=== PATIENT | female | born 1965 | race Caucasian/White ===

== ENCOUNTER 2023-10-07 08:03 | Outpatient (CLI) | payer OTHER, SELFPAY ==
--- NOTE | ~2023-10-07 | MMUS_ITS ---
EXAMINATION: MM diagnostic adriane BI w kit, US breast BI complete HISTORY: Bilateral breast pain TECHNIQUE: Additional 3-D tomosynthesis images of the breasts were performed and synthetic 2-D images were generated. CAD analysis was submitted and interpreted. High resolution bilateral complete breas t ultrasound was performed. COMPARISON: Comparison to multiple prior studies sequentially, with oldest reviewed study dated 08/24. BREAST PARENCHYMAL COMPOSITION: Not dense: There are scattered areas of fibroglandular density. FINDINGS: MAMMOGRAPHIC FINDINGS: There are multiple bilateral breast masses which are obscured by fibroglandular tissue. There are no suspicious calcifications or architectural distortion. ULTRASOUND: Complete bilateral US of all 4 quadrants of the breasts and retroareolar region was reviewed. Right breast: At 12:00, 4 cm from the nipple there is an oval 1 cm hypoechoic mass with parallel orie ntation, no posterior features with echogenic hilum, likely a intramammary lymph node. At 12:00, 4 cm from the nipple, there is an oval 3 mm hypoechoic mass, likely complicated cyst. At 9:00, 4 cm from the nipple there is an oval hypoechoic mass with parallel orientation, no posterior features and no i nternal vascularity, likely benign. At 10:00, 7 cm from the nipple there is an oval hypoechoic 11 mm mass with posterior acoustic enhancement, likely a complicated cyst. At 10:00, 7 cm from the nipple, there is an oval 4 mm cyst. At 10:00, 6 cm from the nipple there is an oval hypoechoic mass measuring 5 mm with parallel orientation, no significant posterior features, likely benign. At 11:00, 5 cm fro m the nipple there is a slightly irregular shaped hypoechoic mass measuring 6 mm with internal echoge ruddy foci and no internal vascularity. There is mixed posterior attenuation. Margins are slightly lobu lated. At 12:00, 4 cm from the nipple there is an irregular shaped parallel oriented hypoechoic mass measuring 1.4 x 0.5 x 1.4 cm with irregular margins and no internal vascularity. No significant poste rior features. Left breast: At 12:00, 5 cm from the nipple there is a round 4 mm hypoechoic mass, likely benign no i nternal vascularity or significant posterior features. At 12:00, 4 cm from the nipple there are 2 adj acent cysts, largest measuring 11 mm. At 1:00, 4 cm from the nipple there is a 6 mm cyst. At 1:00, 2 cm from the nipple there is a 11 mm cyst. At 2:00, 6 cm from the nipple there is an oval hypoechoic m ass measuring 5 mm with parallel orientation, no posterior features. At 11:00, 4 cm from the nipple t here is an antiparallel slightly irregular shaped 5 mm mass without internal vascularity. At 11:00, 4 cm from the nipple there is an oval 4 mm hypoechoic mass, likely benign. IMPRESSION: 1. Suspicious masses in both breasts as follows: Right breast at 11:00, 5 cm from the nipple 6 mm mas s, at 12:00, 4 cm from the nipple 1.4 cm irregular shaped hypoechoic mass. Left breast: At 11:00, 4 c m from the nipple there is 5 mm mass with antiparallel configuration. Ultrasound-guided biopsy of eac h of these masses recommended. 2. Multiple additional likely benign bilateral breast masses are identified by ultrasound which requi re 6 month follow-up. BI-RADS CATEGORY 4-SUSPICIOUS ABNORMALITY Reviewed, dictated and finalized at location B. IMPRESSION: 1. Suspicious masses in both breasts as follows: Right breast at 11:00, 5 cm fr om the nipple 6 mm mass, at 12:00, 4 cm from the nipple 1.4 cm irregular shaped hypoechoic mass. Left breast: At 11:00, 4 cm from the nipple there is 5 mm mas s with antiparallel configuration. Ultrasound-guided biopsy of each of these ma sses recommended. 2. Multiple additional likely benign bilateral breast masses are identified by ultrasound which requ
== END 2023-10-07 08:04 ==
LOC: MICIMG 08:05
PROVIDERS: Visit Provider Nurse Practitioner Obstetrics & Gynecology
DX: N64.4 Mastodynia (principal); R92.8 Other abnormal and inconclusive findings on diagnostic imaging of breast
CPT/HCPCS: 76641; 77062; 77066; G0279

== ENCOUNTER 2023-11-11 12:03 | Outpatient (CLI) | payer OTHER, SELFPAY ==
--- NOTE | ~2023-11-11 | MR_ITS ---
MR breast BI wo/w con 11/12/2023 08:16 CDT INDICATION: Bilateral breast masses seen on prior examination. Mastodynia. TECHNIQUE: MRI of the breasts perform using standard protocol pre-and post IV contrast with the follo wing sequences: Axial T2 STIR, axial T1, axial vibrant T1 with fat suppression precontrast and multip hasic postcontrast. 17 cc of MultiHance administered intravenously. COMPARISON: Comparison to multiple prior studies sequentially, with oldest reviewed study dated 11/13. FINDINGS: There are multiple bilateral cysts. There are no abnormalities on the precontrast sequences . There is moderate background parenchymal enhancement. In the upper outer quadrant at 10:00, middle third there is a oval slightly lobulated mass measuring approximately 11 mm with slightly irregular m argins and heterogeneous internal rapid plateau enhancement. This likely corresponds to the mass seen on ultrasound at 12:00, 4 cm from the nipple measuring 1.4 cm. Biopsy recommended. No definite corre late to the mass seen on prior ultrasound 11:00, 5 cm from the nipple. Biopsy of this also recommende d. In the upper inner quadrant of the right breast at 2:00 there is a 4 mm enhancing round mass with rapid washout kinetics at 2:00, middle third 6.4 cm posterior to the nipple. No definite sonographic correlate to this MRI mass. In the upper outer quadrant of the right breast at 12:00, middle third 8. 3 cm posterior to the nipple there is an oval area of nonmass-like enhancement measuring 11 x 8 x 13 mm with rapid plateau enhancement. No definite sonographic correlate. No evidence of signal abnormali ties in the axillary or internal mammary node distributions. LEFT BREAST: No signal abnormalities on precontrast sequences. There is moderate background parenchy mal enhancement. In the upper outer quadrant at 12:00, middle third 7.3 cm posterior to the nipple th ere is a 6 mm enhancing mass with rapid plateau enhancement which has an oval circumscribed appearanc e and homogeneous enhancement this may correspond to the mass seen on prior ultrasound at 11:00, 4 cm from the nipple. Recommend ultrasound guided biopsy of this lesion. No evidence of signal abnormalit ies in the axillary or internal mammary node distributions.] IMPRESSION: 1: Right breast: Recommend follow-up ultrasound guided biopsy of right breast masses at 11:00, 5 cm from the nipple and 12:00, 4 cm from the nipple. 2: Left breast: Recommend ultrasound-guided biopsy of left breast mass seen on prior ultrasound 11:0 0, 4 cm from the nipple. BI-RADS CATEGORY 4-SUSPICIOUS ABNORMALITY Reviewed, dictated and finalized at location B. IMPRESSION: 1: Right breast: Recommend follow-up ultrasound guided biopsy of right breast masses at 11:00, 5 cm from the nipple and 12:00, 4 cm from the nipple. 2: Left breast: Recommend ultrasound-guided biopsy of left breast mass seen on prior ultrasound 11:00, 4 cm from the nipple. BI-RADS CATEGORY 4-SUSPICIOUS ABNORMALITY
== END 2023-11-11 12:04 | disposition home or self-care (01) ==
PROVIDERS: Visit Provider Surgery
DX: N63.11 Unspecified lump in the right breast, upper outer quadrant (principal); N63.21 Unspecified lump in the left breast, upper outer quadrant
CPT/HCPCS: 77049; A9577; C8908

== ENCOUNTER 2023-12-21 07:36 | Outpatient (CLI) | payer OTHER, SELFPAY ==
--- NOTE | ~2023-12-21 | MMUS_ITS ---
MM post biopsy diagnostic BI, US breast biopsy LT w image, US breast biopsy RT w image EXAMINATION: US GUIDED NEEDLE BIOPSY WITH VACUUM ASSISTANCE DATE: 12/21/2023 11:13 CDT INDICATION: Bilateral breast masses seen on recent examination. Ultrasound-guided core biopsy is req uested to evaluate for malignancy. BREAST PARENCHYMAL COMPOSITION: Not dense: There are scattered areas of fibroglandular density. TECHNIQUE AND FINDINGS: The risks and potential benefits of the procedure were discussed with the patient, and written inform ed consent was obtained. Right breast: Masses of the right breast located at 11:00, 5 cm from the nipple and 12:00, 4 cm from the nipple were localized. 2 separate vacuum biopsy procedures were performed. A 10G vacuum-assisted biopsy gun needle was advanced through to the outer edge of the regions of interest utilizing sonogra phic guidance. A total of three tissue core samples were obtained through each lesion. An Inrad tis leonel marker clip was then placed at the biopsy site. Hemostasis was achieved. Left breast: Mass at 11:00, 4 cm from the nipple was localized. A 10G vacuum-assisted biopsy gun need le was advanced through to the outer edge of the region of interest from a superior approach utilizin g sonographic guidance. A total of three tissue core samples were obtained through the lesion. An I nrad tissue marker clip was then placed at the biopsy site. Hemostasis was achieved. The patient tolerated procedure well and there was no evidence of immediate complication. The patien t was given verbal instructions partly is from the department. [facility] The tissue samples were submitted to surgical pathology for histolog ic analysis. IMPRESSION: 1. Successful ultrasound-guided vacuum-assisted biopsy of bilateral breast masses with post procedur e mammogram for marker placement. Please refer to pathology report for histologic analysis. Reviewed, dictated and finalized at location B. IMPRESSION: 1. Successful ultrasound-guided vacuum-assisted biopsy of bilateral breast mas ses with post procedure mammogram for marker placement. Please refer to patholo gy report for histologic analysis. IMPRESSION: 1. Successful ultrasound-guided vacuum-assisted biopsy of bilateral breast mas ses with post procedure mammogram for marker placement. Please refer to patholo gy report for histologic analysis.
== END 2023-12-21 07:37 | disposition home or self-care (01) ==
PROVIDERS: Visit Provider Surgery
DX: N63.11 Unspecified lump in the right breast, upper outer quadrant (principal); N63.15 Unspecified lump in the right breast, overlapping quadrants; N63.22 Unspecified lump in the left breast, upper inner quadrant; R92.8 Other abnormal and inconclusive findings on diagnostic imaging of breast; N60.11 Diffuse cystic mastopathy of right breast; N60.12 Diffuse cystic mastopathy of left breast
CPT/HCPCS: 19083; 77066; 88305; A4648

== ENCOUNTER 2024-07-14 10:50 | Outpatient (CLI) | payer OTHER, SELFPAY ==
--- NOTE | ~2024-07-14 | MMUS_ITS ---
EXAMINATION: MM diagnostic adriane BI w kit, US breast RT limited HISTORY: Previous benign biopsy TECHNIQUE: Additional 3-D tomosynthesis images of the right breast were performed and synthetic 2-D i mages were generated. CAD analysis was submitted and interpreted. High resolution Limited right breas t ultrasound was performed. COMPARISON: Comparison to multiple prior studies sequentially, with oldest reviewed study dated 08/24. BREAST PARENCHYMAL COMPOSITION: Dense: The breasts are heterogeneously dense, which may obscure small masses FINDINGS: MAMMOGRAPHIC FINDINGS: There are multiple obscured masses in the upper outer quadrant of the right breast superimposed on fi broglandular tissue. There are tissue markers located in the upper outer quadrant of the right breast from previous benign biopsies. The left breast is stable without evidence for malignancy. ULTRASOUND: Limited right breast ultrasound: There are multiple simple and minimally complicated cysts of the rig ht breast in the upper outer quadrant. There is a 9 mm cyst at 10:00, 4 cm from the nipple. At 11:00, 5 cm from the nipple there is a stable oval hypoechoic 5 mm mass with low level internal echoes, no posterior features or internal vascularity, unchanged from prior examination line for technique. No n ew suspicious masses to suggest malignancy. IMPRESSION: 1. No evidence for malignancy in either breast. Benign findings. 2. Routine yearly screening mammogram and regular clinical breast examination are recommended. BI-RADS Category 2: Benign finding(s). Reviewed, dictated and finalized at location A. IMPRESSION: 1. No evidence for malignancy in either breast. Benign findings. 2. Routine yearly screening mammogram and regular clinical breast examination a re recommended. BI-RADS Category 2: Benign finding(s).
--- OUTSIDE RECORDS SUMMARY | 2024-07-14 11:46 | XMS_ITS | Referral Summary ---
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 Gender Identity Not on file Sexual Orientation Not on file Last Filed Vital Signs Vital Sign Reading Time Taken Comments Blood Pressure - - Pulse - - Temperature - - Respiratory Rate - - Oxygen Saturation - - Inhaled Oxygen Concentration - - Weight 97.5 kg (215 lb) 08/24/2019 8:32 AM CDT Height 170.2 cm (5' 7 ) 08/27/2021 8:29 AM CDT Body Mass Index 33.67 08/24/2019 8:32 AM CDT Plan of Treatment Not on file Procedures Procedure Name Priority Date/Time Associated Diagnosis Comments SCREENING MAMMOGRAM BILATERAL W ORAL Schedule Routine, Read Routine (OP Routine) 11/13/2022 8:25 AM CDT Screening mammogram, encounter for from Last 3 Months or Most Recently Relevant to Health Maintenance Results * Screening Mammogram Bilateral W Oral (11/13/2022 8:25 AM CDT) Anatomical Region Laterality Modality Breast Bilateral Mammography 11/13/2022 8:51 AM CDT Impressions 11/13/2022 8:51 AM CDT There is no mammographic evidence of malignancy. A 1 year screening mammogram is recommended. BI-RADS: 2 - Benign. The patient has been or will be contacted. The patient will be entered into a reminder system with a target due date of 1 year for her next mammogram. Electronically signed by: LIBBY Wilde 11/13/2022 8:51 AM CDT EXAMINATION: SCREENING MAMMOGRAM BILATERAL W ORAL ORDERING HEALTHCARE PROVIDER: SELF SCREENING MAMMOGRAM HISTORY: Routine screening mammography. COMPARISON: 08/27/2021, 08/24/2020, 08/24/2019, 06/22/2018. TECHNIQUE: CC and MLO views of both breasts were obtained with digital technique using digital breast tomosynthesis with C view. Computer aided detection was utilized. FINDINGS: DENSITY: The breasts are heterogeneously dense, which may obscure small masses. BREASTS: Multiple similar-appearing small masses with circumscribed margins are again seen. These are considered benign given their appearance and multiplicity, and lack of suspicious interval change. These probably represent cysts. There is no new suspicious finding in either breast on mammogram. us Self Screening Mammogram IMG MAMMO PROCEDURES Fi nal Result from Last 3 Months or Most Recently Relevant to Health Maintenance Insurance [employer] CHOICE ANTHTrellie ACCESS BLUE ACC CHOICE OOS Member Subscriber Plan / Payer (Ef fective 2020-Present) Name:Betty Sagastume Relation to Subscriber:Self Name:Betty Sagastume Payer ID:[id number] (NA) Group ID:[id number] Type: [facility] Address: [address] [place] [address] BL CHOICE PRF PPO [place] [facility] CHOICE OOS Member Subscriber Plan / Payer (Ef fective 2020-Present) Name:Betty Sagastume Relation to Subscriber:Self Name:Betty Sagastume Payer ID:[id number] ([facility]) Group ID:[id number] Type: [facility] Address: [address] [place] [address] BL [place]F [place] [facility] PPO Care Teams Systems Management Consultant Relationship Specialty Start Date End Date Miscellaneous, Not In File PCP - General 08/28/21
--- OUTSIDE RECORDS SUMMARY | 2024-07-14 11:47 | XMS_ITS | Clinical Summary ---
Author Organization [facility] Address [address] [place] [address] Phone Care Team Providers Care Chain Forming Machine Operator Name Role Phone HamlinJesse cadet Primary Care Provider Allergies Active Allergy Reactions Criticality Noted Date Comments Aspirin Other (See Comments) 12/28/2016 Can't remember Medications SUMAtriptan (IMITREX) 100 mg tablet Take 100 mg by mouth see administration instructions may repeat in 2 hours; max dose 200mg in 24 hours . Active predniSONE (DELTASONE) 5 mg tablet Take 5 mg by mouth daily. Active docusate sodium (COLACE) 100 mg capsule Take 1 Capsule (100 mg) by mouth 2 times daily. 90 Capsule 1 7 Active cyclobenzaprin e (FLEXERIL) 10 mg tablet Take 1 Tablet (10 mg) by mouth 3 times daily as needed for Discomfort, Pain or Spasm. 45 Tablet 7 Active oxyCODONE-acet aminophen (PERCOCET) 5-325 mg tabletIndicati ons:Open left ankle fracture, type III, initial encounter,Ankl e dislocation, left, initial encounter Take 1 Tablet by mouth every 4 hours as needed for Pain, Moderate. Max Daily Amount: 6 Tablets 50 Tablet 7 Active Active Problems Problem Noted Date Diagnosed Date Type III open fracture dislocation of left ankle 12/27/2016 Immunizations Immunization Administration Dates Next Due (ADACEL/BOOSTRIX)(10 YR UP) TDAP VACCINE, 0.5ML, IM 12/04/2016 Influenza Seasonal Unspecified Formulation IM Social History Tobacco Use Types Packs/Day Years Used Date Smoking Tobacco: Former Smokeless Tobacco: Never Alcohol Use Standard Drinks/Week Comments No 0 (1 standard drink = 0.6 oz pur e alcohol) Comments Unknown Sex and Gender Information Value Date Recorded Sex Assigned at Not on file Legal Sex Female 6:54 PM CDT Gender Identity Not on file Sexual Orientation Not on file Last Filed Vital Signs Vital Sign Reading Time Taken Comments Blood Pressure 125/70 12/30/2016 1:26 PM CDT Pulse 113 12/30/2016 1:26 PM CDT Temperature 36.5 C (97.7 F) 12/30/2016 1:26 PM CDT Respiratory Rate 16 12/30/2016 1:26 PM CDT Oxygen Saturation 100% 12/30/2016 1:26 PM CDT Inhaled Oxygen Concentration - - Weight 93 kg (205 lb) 12/28/2016 2:23 AM CDT Height 170.2 cm (5' 7 ) 12/28/2016 2:23 AM CDT Body Mass Index 32.11 12/28/2016 2:23 AM CDT Plan of Treatment Health Maintenance Due Date Last Done Comments HEPATITIS B VACCINES (1 of 3 - 19+ 3-dose series) 05/1985 HPV/Cotest (21-29) 01/17/1988 CERVICAL CANCER SCREENING 1997 HPV/Cotest (30-65) 1997 PAP SMEAR 1997 BREAST CANCER SCREENING 2007 COLORECTAL SCREENING 01/17/2012 Colorectal Cancer Screening 01/17/2012 FIT-DNA Q 3 years 01/17/2012 FIT/FOBT Q 1 year 01/17/2012 Flex Sig/CT Colonography Q 5 years 01/17/2012 ZOSTER VACCINE (1 of 2) 2017 INFLUENZA VACCINE (#1) 2023 12/04/2016 DTAP/TDAP/TD VACCINES (2 - Td or Tdap) 12/04/2026 Medical Devices Implanted Type Area Sock Ironer Device Identifier Shelf Expiration Date Model / Serial / Lot Plate Fib Lat/Dis 2.7/3.5mm - [id number] Implanted:Qty: 1 on 12/28/2016 by Domitila Marley MD at [facility] Plate Left: Ankle SYNTHES STRATEC 143 ; 12/27/[address] Loc 2.7x16mm 202.216 - [id number] Implanted:Qty: 1 on 12/28/2016 by Domitila Marley MD at [facility] Screw Left: Ankle SYNTHES STRATEC 202.216 / / 15; 12/27/[address] Loc 2.7x18mm 202.218 - [id number] Implanted:Qty: 1 on 12/28/2016 by Domitila Marley MD at [facility] Screw Left: Ankle SYNTHES STRATEC 202.218 / / 15; 12/27/[address] 3.5x12mm 204.812 - [id number] Implanted:Qty: 2 on 12/28/2016 by Domitila Marley MD at [facility] Screw Left: Ankle SYNTHES STRATEC 204.812 ; 12/26/16 Explanted Type Area Sock Ironer Device Identifier Shelf Expiration Date Model / Serial / Lot Screw St 2.7x16mm 202.816 - [id number] Implanted:Domitila Montanez MD (Quantity not on file) Explanted:Qty: 1 on 12/28/2016 by Domitila Marley MD at [facility] Screw Left: Ankle SYNTHES STRATEC 202.816 ; 12/26/16 Insurance [facility] [address] BLUE ACCESS/TRUE BLUE PPO Advance Directives For more information, please contact: [phone] * Full Code (Latest Code Status on File) Date Activated Date Inactivated Comments 12/28/2016 8:04 AM 12/30/2016 6:53 PM * Full Code Date Activated Date Inactivated Comments 12/27/2016 10:09 PM 12/28/2016 8:04 AM Care Teams Chain Forming Machine Operator Relationship Specialty Start Date End Date Jesse Hamlin DO PCP - General Family Practice 12/27/16
--- OUTSIDE RECORDS SUMMARY | 2024-07-14 11:47 | XMS_ITS | Clinical Summary ---
Author Organization [facility] Address [address] [place] [address] Phone Care Team Providers Care Scagliola Mechanic Name Role Phone Jesse Schilling DAYANA Primary Care Provider [phone] Allergies Active Allergy Reactions Criticality Noted Date Comments Aspirin Hives 11/12/2017 Medications montelukast (SINGULAIR) 10 MG Tablet Take 10 mg by mouth daily. 8 Active ERLINDA-D ALLERGY & CONGESTION 60-120 MG TABLET SR 12 HR Take 1 Tab by mouth daily as needed. 8 Active hydrocortisone (CORTEF) 5 MG Tablet Take 5 mg by mouth daily as needed. 8 Active SUMAtriptan (IMITREX) 100 MG Tablet Take 100 mg by mouth. 1 tablet as needed for migraine may repeat in 2-3 hours if needed x1. 8 Active traMADol (ULTRAM) 50 MG Tablet Take 50 mg by mouth every 6 hours as needed. 8 Active Multiple Vitamins-Mineral s (MULTIVITAMIN PO) Take 1 Tab by mouth daily. Active other Take 1 Tab by mouth daily. Vitamin C Pack Active Multiple Vitamins-Mineral s (EYE VITAMINS PO) Take 1 Tab by mouth daily. Active BIOTIN PO Take 1 Tab by mouth daily. Active CALCIUM PO Take 1 Tab by mouth daily. Active furosemide (LASIX) 20 MG Tablet Take 20 mg by mouth as needed. Active NYSTATIN EX by Apply externally route. Active Cephalexin 500 MG Tablet Take 500 mg by mouth daily. Active raNITIdine (ZANTAC) 300 MG Tablet Take 300 mg by mouth nightly. Active nebivolol (BYSTOLIC) 5 MG Tablet Take 10 mg by mouth nightly. Active clotrimazole (MYCELEX) 10 MG Katharine Take 10 mg by mouth 5 times daily. Active zolpidem (AMBIEN) 10 MG Tablet Take 5 mg by mouth nightly as needed. Active MAGNESIUM PO Take 50 mg by mouth daily. OTC Active otherIndications :USES ESTROGEN PATCH AND TESTOSTERONE PO, BUT UNSURE OF DOSE REPORTED ON 06/02/22 [address]. Indications: USES ESTROGEN PATCH AND TESTOSTERONE PO, BUT UNSURE OF DOSE REPORTED ON 06/02/22 Active Active Problems Problem Noted Date Diagnosed Date Migraine 05/16/2010 Asthma Family History Medical History Relation Name Comments Asthma Father Heart Disease Father Colon Cancer Mother Heart Disease Mother heart arrhythm ia Breast Cancer Paternal Grandmother Relation Name Status Comments Father Mother Alive Paternal Grandmother Social History Tobacco Use Types Packs/Day Years Used Date Smoking Tobacco: Former Cigarettes 0.3 1 0 09/11/1983 - 09/10/1984 Smokeless Tobacco: Never Alcohol Use Standard Drinks/Week Comments No 0 (1 standard drink = 0.6 oz pur e alcohol) Comments No Sex and Gender Information Value Date Recorded Sex Assigned at Not on file Legal Sex Female 10:31 PM CDT Gender Identity Not on file Sexual Orientation Not on file Last Filed Vital Signs Vital Sign Reading Time Taken Comments Blood Pressure 108/60 03/18/2024 5:54 PM MONITOR TECH Pulse 88 03/18/2024 5:54 PM MONITOR TECH Temperature 36.6 C (97.8 F) 03/18/2024 5:54 PM MONITOR TECH Respiratory Rate 20 03/18/2024 5:54 PM MONITOR TECH Oxygen Saturation 98% 03/18/2024 5:54 PM MONITOR TECH Inhaled Oxygen Concentration - - Weight 88.5 kg (195 lb) 06/02/2022 9:00 AM CDT Height 170.2 cm (5' 7 ) 06/02/2022 9:00 AM CDT Body Mass Index 30.54 06/02/2022 9:00 AM CDT Plan of Treatment Health Maintenance Due Date Last Done Comments Hepatitis C Virus (HCV) Screening 1967 Hepatitis B Immunization (1 of 3 - 19+ 3-dose series) 1986 Pneumococcal Immunization (50+ years) (1 of 2 - PCV) 1986 Pap Smear 01/17/1988 Cervical Cancer Screening (CCS) 1997 HPV/Cotest 1997 Cologuard 2017 Immunochemical Fecal Occult Blood 2017 Mammogram 11/14/2023 11/13/2022, 08/14, 08/24/2020, Additional history exists Influenza Immunization (#1) 11/15/202301/15, 11/16/2021, 01/02/2020, Additional history exists SARS-COV-2 Immunization ( season) 2023 05/24/2020 Colonoscopy 06/14/2027 06/13/2022, 09/10/2018 Colorectal Cancer Screening 06/14/2027 Respiratory Syncytial Virus (RSV) Immunization (Adult) (1 - 1-dose 75+ series) 2042 06/13/2022, 09/10/2018 DTaP/Tdap/Td Immunization Discontinued 12/04/2016 TdaP Immunization Completed 12/04/2016 Zoster Immunization Completed 02/23/2022, 2 Meningococcal Immunization (ACWY) Aged Out No longer eligible based on patient's age to complete this topic Rotavirus Immunization Aged Out No lo nger eligible based on patient's age to complete this topic Insurance Care Teams Scagliola Mechanic Relationship Specialty Start Date End Date Jesse Schilling, DAYANA [address] [place] [address] PCP - General Physician Vat Washer 11/12/17
--- OUTSIDE RECORDS SUMMARY | 2024-07-14 11:47 | XMS_ITS | Clinical Summary ---
Author Organization [facility] Address [address] [place] [address] Care Team Providers Care Occ Therapist Name Role Phone Miscellaneous, Not In File Primary Care Provider Unavailable Family History Medical History Relation Name Comments Breast cancer Paternal Grandmother mp 70's Ovarian cancer Neg Hx Thyroid cancer Neg Hx Relation Name Status Comments Paternal Grandmother mp Social History Tobacco Use Types Packs/Day Years Used Date Smoking Tobacco: Never Assessed Comments No Sex and Gender Information Value Date Recorded Sex Assigned at Not on file Legal Sex Female 9:56 AM [employer] Gender Identity Not on file Sexual Orientation Not on file Obstetrics History Para Term AB IAB SAB Ectopic Multiple Livin g Live Births 3 2 2 Date Outcome GA Total Labor Labor/2nd/3rd Weight Sex Type Anes PTL Ashley A1 A5 Name Clin Term Term Last Filed Vital Signs Vital Sign Reading Time Taken Comments Blood Pressure - - Pulse - - Temperature - - Respiratory Rate - - Oxygen Saturation - - Inhaled Oxygen Concentration - - Weight 97.5 kg (215 lb) 08/24/2019 8:32 AM CDT Height 170.2 cm (5' 7 ) 08/27/2021 8:29 AM CDT Body Mass Index 33.67 08/24/2019 8:32 AM CDT Plan of Treatment Health Maintenance Due Date Last Done Comments Cervical Cancer Screening 1967 Colon Cancer Screening-Colonoscopy 1967 Depression Screening 1967 Hepatitis C Screening 1967 Hepatitis B Screening 1985 Regular Well Visit/Exam 18-64 1985 Zoster Vaccine (1 of 2) 2017 Breast Cancer Screening-Mammogram 11/14/2023 11/13/2022, 08/27/2021, 08/24/2020, Additional history exists Covid-19 Vaccine ( season) 2023 05/24/2020 Influenza Vaccine (#1) 2023 0, 11/26/2018, 04/27/2018, Additional history exists DTaP/Tdap/Td Vaccine (2 - Td or Tdap) 12/04/2026 12/04/2016 Pneumococcal vaccine <65 Aged Out No longer eligible based on patient's age to complete this topic Procedures Procedure Name Priority Date/Time Associated Diagnosis [...] Most Recently Relevant to Health Maintenance Insurance ANTHEM ACCESS CHOICE ANTHEM ACCESS Member Subscriber Plan / Payer (Ef fective 2018-Present) Name:Betty Sagastume Relation to Subscriber:Self Name:Betty Sagastume Payer ID:[id number] (NAIC) Group ID:[id number] Type:[place] Address: [address] ACC CHOICE OOS BL CHOICE [place]F [place] [facility] HMO [facility] OOS [facility] [place]PO [place] [facility] PPO Care Teams Occ Therapist Relationship Specialty Start Date End Date Miscellaneous, Not In File PCP - General 08/28/21
--- OUTSIDE RECORDS SUMMARY | 2024-07-14 11:47 | XMS_ITS | Data Portability ---
Author Organization [facility] Address [address] [place] [address] [place] [address] Assessment Encounter Date Assessment Date Assessment LastModified by Organization Details LastModified Time 07/26/2019 07/26/2019 Annual gynecological exam performed. Patient will come back in a year unless there are new symptoms. [email or web address] Not available 07/26/2019 09:16:49 Plan of Treatment Reminders Order Date Submit Date Provider Last Modified By Organization Details Last Modified Time Details Appointments None recorded . Lab fecal occult blood, stool 020 07/26/19 [facility], [address], [place], [address], 0 17:47:32 Referral None recorded . Procedures None recorded . Surgeries None recorded . Imaging None recorded . Medication Orders None recorded . Patient TargetsNo targets recorded. Patient InstructionsNo instructions recorded. Reason for Referral None Reported. Results Created Date Observation Date Name Description Value Unit Range Abnormal Flag Note LastModifiedBy Organization Detail LastModifiedTime 07/26/19 20 07/28/2019 pap, LB Pap test thin prep Negati ve for Intrae pithel ial Lesion or Malign sharath normal ACCES CARMELITA #: [id number] Sourc e: Cervi isabel/E ndoce rvica l LMP: 020 Date Taken : 07/25 Speci men Type: ThinP rep Vial Date Repor kaur: 2019 Clini isabel Data: Cytot ech: Terri Dickerson CT( CP) Date Repor kaur: 2019 Revie wed By: Frances Allen , CT (ASCP ) Speci men Adequ acy: Satis facto ry for evalu ation No endoc ervic al/tr ansfo rmati on zone compo nent prese nt Gener al Categ oriza tion: NEGAT WILLI FOR INTRA EPITH ELIAL MIKAEL N OR MALNAHEED REINA This speci men has been fiorella zed by the ThinP rep Imagi ng Syste m, an inter activ e compu ter syste m which gabriel ts the lab in the [place] of ThinP rep Pap Test slide s. Follo wing imagi ng, the slide was revie wed by a Cytot echno logis t and/o r Patho logis t. D N A A S S A Y S R E P O R T TEST NAME RESUL TS ----- ---- ----- -- HPV High Risk Inessa barber (TMA) ThinP rep Vial The human papil lomav irus (HPV) High Risk Inessa barebr is an FDA-a pprov ed in-vi tro ampli fied nucle ic acid test for the quali tativ e detec tion of E6/E7 viral mRNA. Resul ts shoul d be corre lated with patie nt prese ntati on, histo ry, cervi isabel cytol ogy and other clini isabel and labor atory findi ngs. See https ://ViVu/s ites/ defau lt/fi les/2 018-0 3/AW- 45420 _002_ 01.pd f for furth er infor pernell n. Test perfo rmed by [facility] d/b/a [facility], [address], [place] [address] , Pedro Montesinos ra, DO, Labor atory Direc tor. HPV High Risk *HPV NOT DETEC KAUR (TYPE S 16, 18, 31, 33, 35, 39, 45, 51, 52, 56, 58, 59, 66, 68) *HPV: The human papil lomav irus (HPV) High Risk Inessa barber is an FDA-a pprov ed in-vi tro ampli fied nucle ic acid test for the quali tativ e detec tion of E6/E7 viral mRNA. Resul ts shoul d be corre lated with patie nt prese ntati on, histo ry, cervi isabel cytol ogy and other clini isabel and labor atory findi ngs. See https ://ViVu/s ites/ defsharron lt/fi les/2 018-0 3/AW- 38819 _002_ 01.pd f for furth er infor pernell n. Test perfo rmed by [facility] d/[facility], [address], [place] [address] , Pedro Montesinos ra, DO, Labor atory Direc tor. End of Repor t Techn ical servi artei provi ded by [facility], [address] [place] [address] Nhan Baugh MD, [facility] [employer] [employer] Dire tor. Case revie wed and diagn osis rende red at [facility], [facility], [address] [place] [address] Nhan Baugh MD, [facility] CONFI DENTI AL Not Available [facility] ([facility]) [address], [place], [address], 07/28/2019 13:01:19 07/26/19 20 07/27/2019 HPV DNA, high- risk HPV high risk NOT DETECT ED normal Not Available [facility] ([facility]) [address], [place], [address], 07/28/2019 13:01:20 08/24/19 20 08/24/2019 MAMMO , [place], bilat eral No observ ation record ed. [address] , [place], [address], 09/29/2019 12:43:46 Result Notes None recorded. 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 Procedures Surgical History Date Name Laterality Status Provider Name and Address Organization Details Recorded Time Other completed Concetta Matt [facility] 07/26/2019 05:59:27 Imaging Results Imaging Date Name Status LastModified by Organiz ation Details LastModified Time 08/24/2019 MAMMO, screening, bilateral completed [address], [address], 09/29/2019 12:43:46 Procedure Notes None recorded. Medical Equipment None Reported. Allergies Allergen ID Allergen Name Allergen Category Reaction Reaction Severity Criticality Documentation Date Start Date Code Code System Note Provider Name and Address Organization Details Recorded Time 537 aspirin medicatio n Not available Not available Not available 07/26/2019 1191 RxNorm Concetta Jin renny betancourt [facility] 0 05:56:28 Medications Name Sig Start Date Stop Date Status Note LastModified by Organization Details LastModified Time hydrocort isone 0.5 % topical cream apply by topical route 2 times every day a thin layer to the affected area(s) active Prescrib ed Elsewher e: Yes [facility] By: dmrose E ncounter DateTime : 07/23/19 10:00:00 AM Not Available Not Available Not Available fluconazo le 150 mg tablet Take by oral route. 07/25 completed Not Available Not Available Not Available monteluka st 4 mg chewable tablet active Prescrib ed Elsewher e: Yes Loca tion: Ervin cadet [facility] odify By: yen arroyounter DateTime : 07/23/19 10:00:00 AM Not Available Not Available Not Available Imitrex 50 mg tablet take 1 tablet by oral route after onset of migraine ; may repeat after 2 hours if headache returns, not to exceed 200mg in 24hrs active Prescrib ed Elsewher e: Yes Loca tion: Ervin cadet [facility] odify By: yen arroyounter DateTime : 07/23/19 10:00:00 AM Not Available Not Available Not Available ranitidin e 150 mg capsule take 1 capsule by oral route 2 times every day active Prescrib ed Elsewher e: Yes Loca tion: Ervin cadet [facility] odify By: yen arroyounter DateTime : 07/23/19 10:00:00 AM Not Available Not Available Not Available esomepraz ole magnesium 20 mg capsule,d elayed release take 1 capsule by oral route every day at least 1 hour before a meal swallowi ng whole. Do not crush or chew granules . active Prescrib ed Elsewher e: Yes Loca tion: Ervin cadet [facility] odify By: yen arroyounter DateTime : 07/23/19 10:00:00 AM Not Available Not Available Not Available Imitrex active Not Available Not Avail able Not Available hydrocort isone 07/25 completed Not Available Not Available Not Available monteluka st 07/25 completed Not Available Not Available Not Available Negin 07/25 completed Not Available Not Available Not Available esomepraz ole magnesium 07/25 completed Not Available Not Available Not Available Ranitidin e 07/25 completed Not Available Not Available Not Available Vitamins and Minerals active Not Available Not Available Not Available Bystolic 10 mg tablet take 1 tablet by oral route every day active Prescrib ed Elsewher e: Yes Loca tion: Ervin cadet [facility] odify By: dmrose E ncounter DateTime : 07/23/19 10:00:00 AM Not Available Not Available Not Available Bystolic active Not Available Not Avai lable Not Available Negin Allergy 60 mg tablet take 1 tablet by oral route 2 times every day active Prescrib ed Elsewher e: Yes Loca tion: [facility] odify By: [facility] Cadet ncounter DateTime : 07/23/19 10:00:00 AM Not Available Not Available Not Available Dymista 137 mcg-50 mcg/spray nasal spray spray 1 spray by intranas al route 2 times every day in each nostril active Prescrib ed Elsewher e: Yes Loca tion: [facility] odify By: yen Nina ncounter DateTime : 07/23/19 10:00:00 AM Not Available Not Available Not Available Dymista 07/25 completed Not Available Not Available Not Available Vitals Date Recorded Body height Body mass index (BMI) Body weight Systolic blood pressure Diastolic blood pressure Provider Name and Address Organization Details Last Updated DateTime 07/26/2019 170.18 cm 34.6 kg/m2 492904.9 1 g 129 mm[Hg] 85 mm[Hg] [facility] 0 09:17:11 Social History None recorded. Functional Status None recorded. Mental Status None recorded. Family History Relationship Description Onset Age of this Age Resolved Age Notes LastModified by Organization Details LastModified Time Mother Family history of cancer of colon cleravatanaku l Not available 07/26/2019 05:58:13 Father Asthma cleravatanaku l Not available 07/26/2019 05:58:21 Paternal Grandmother Family history of breast cancer cleravatanaku l Not available 07/26/2019 05:58:34 Notes:Father: Asthma Mother: Cancer, colon Paternal grandmother: Cancer, breast Medical History Condition Response Other N Blood Transfusion N Dermatologic Disorders N Gestational Diabetes N Anxiety Disorder N Autoimmune disease N Arthritis N Polyps N Infertility N Acid Reflux (GERD) N Cancer N Varicosities N Stroke N Neurologic/Epilepsy N Fibromyalgia N Headaches N Kidney Disease N Heart Problems N Kidney or Bladder Problems N Eating Disorder N Art (IVF or FET) N Hepatitis/Liver Disease N Urinary Tract Infection N Asthma Y Trauma/Violence N Thrombophilias N Allergies (Food, seasonal, environmental ) N Breast Cancer N Drug/Latex Allergies/Reactions N Lung Disease N Defects or Inherited Disease N Breast Problem N Hematologic disorders N Anesthesia Complications N History of STI N Deep Vein Thrombosis N Polycystic ovary syndrome N History of abnormal pap N Endometriosis N High Cholesterol N Thyroid Problems N GI Problems N Anemia N Psychiatric Illness N Ovarian Cancer N Diabetes N Pulmonary (TB, Asthma) N Eczema N Abuse/Domestic Violence N Depression/ depression N Heart Disease N Pre-Eclampsia N Hypertension N Osteoporosis N Gynecological History Statement/Question Response Current Control Method None Date of LMP 06/15/2019 Obstetrics History GPAL:G 0 P 0 0 0 0 Past Encounters Encounter ID Performer Location Encounter Start Date Encounter Closed Date Diagnosis/Indication Diagnosis SNOMED-CT Code Diagnosis ICD10 Code Diagnosis Note [id number] Patricia Starr MD [place] [address] [address] 07/26/2019 09:03:24 07/26/2019 10:06:49 Gynecologic examination 40835792 Z01.419 Pap done due to h/o abnormal pap. Mammogram scheduled at [facility] 08/2019. Colonoscop y normal last year. Menopause symptoms improving without any treatment. She tried black cohosh but stopped it Health Concerns Section Related Observation LastModified by Organization Detai ls LastModified Time None Recorded Concern Status LastModified by Organization Details LastModified Time None Recorded Advance Directives Directive None Recorded Payers Encounter Date Sequence Insurance Name Policy Number Policy Spencer Covered Member ID Spencer Member ID Guarantor Name 07/26/2019 1 [place] [id number] [place] Sagastume [id number] Notes Date Note Type Note Provider Name and Address Organization Details Recorded Time 07/26/2019 text/html Annual GYNReport ed bypatient.Menstrua l cycle:Irregular cycle intervals; periods Q 1-3 months, never heavy. Hot flashes and night sweats improving Urinary symptoms:No hematuria; No incontinence Vulva:No genital lesion Vagina:Normal vaginal discharge Breast:No breast pain; No breast lump; No nipple discharge Sexual complaints:No sexual complaints; No pain during intercourse; Normal libido Menopausal Symptoms:Normal vaginal lubrication;Hot flashes;Insomnia due to night sweats Psychological symptoms:No depression; No anxiety; No PMDD Bobby betancourt [facility] 07/26/2019 09:39:03 OBGyn Episode No OBEpisode recorded.
--- OUTSIDE RECORDS SUMMARY | 2024-07-14 11:47 | XMS_ITS | Clinical Summary ---
Author Organization [facility] Address [address] [place] [address] Care Team Providers Care Veteran Appeals Reviewer Name Role Phone Jesse Schilling Primary Care Provider [phone] Allergies Active Allergy Reactions Criticality Noted Date Comments Aspirin Hives 10/29/2017 Medications ALPRAZolam 0.5 MG tablet Take 0.5 mg by mouth 2 (two) times daily as needed for Sleep. Active docusate sodium (DOK) 100 MG capsule Take 100 mg by mouth 2 (two) times daily. Active esomeprazole 40 MG capsule Take 40 mg by mouth every morning before breakfast. Active fexofenadine-ps eudoephedrine 60-120 MG tablet Take 1 tablet by mouth 2 (two) times daily. Active fluticasone propionate 50 MCG/ACT nasal spray 2 sprays by Each Nare route daily. Active nebivolol 20 MG tablet Take 20 mg by mouth daily. Active montelukast 10 MG tablet Take 10 mg by mouth nightly at bedtime. Active rosuvastatin 10 MG tablet Take 10 mg by mouth nightly at bedtime. Active progesterone 100 MG capsule Take 100 mg by mouth daily. Active estradiol 0.05 MG/24HR patch Place 1 patch onto the skin twice a week. Active Semaglutide (RYBELSUS) 7 MG Tab Take 1 tablet by mouth. Active budesonide (PULMICORT) 0.5 MG/2ML nebulizer solution Take 0.5 mg by nebulization every morning. Active metFORMIN (GLUCOPHAGE) 500 MG tablet Take 500 mg by mouth 2 (two) times daily with meals. Active potassium chloride CR (KLOR-CON M) 10 MEQ tablet Take 10 mEq by mouth 2 (two) times daily. Active lisdexamfetamin e (VYVANSE) 20 MG capsule Take 20 mg by mouth every morning. Active zolpidem (AMBIEN) 5 MG tablet Take 5 mg by mouth nightly as needed for Sleep. 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 Respiratory Rate 16 01/14/2022 4:05 PM CDT Oxygen Saturation - - Inhaled Oxygen Concentration - - Weight 88.9 kg (196 lb) 01/14/2022 4:05 PM CDT Height 170.2 cm (5' 7 ) 01/14/2022 4:05 PM CDT Body Mass Index 30.7 01/14/2022 4:05 PM CDT Plan of Treatment Health Maintenance Due Date Last Done Comments Cervical Cancer Screening Pa p Smear (Age 30 to 64) Every 3 Years 1967 Colorectal Cancer Screening Colonoscopy (10 Years) 1967 Annual Physical 1970 Hepatitis C 1985 Hepatitis B Vaccines (1 of 3 - 19+ 3-dose series) 1986 Cervical Cancer Screening Pa p with HPV Testing (Age 30 to 64) Every 5 Years 1997 Cervical Cancer Screening with HPV 1997 Mammogram Screening 2007 Pneumococcal Vaccine: 50+ Ye ars (1 of 1 - PCV) 2017 Zoster Vaccines (2 of 2) 01/12/2022 11/17/2021 COVID-19 Vaccine (2 - 2023-2 5 season) 2023 05/24/2020 DTaP, Tdap and Td Vaccines ( 2 - Td or Tdap) 12/04/2026 12/04/2016 Meningococcal B Vaccine Aged Out No l onger eligible based on patient's age to complete this topic Meningococcal Vaccine Aged Out No miriam radha eligible based on patient's age to complete this topic RSV Immunizations Under 20 Months Aged Out No longer eligible based on patient's age to complete this topic Insurance [employer] Care Teams Veteran Appeals Reviewer Relationship Specialty Start Date End Date Jesse Schilling PA PCP - General 08/25/17
== END 2024-07-14 10:51 | disposition home or self-care (01) ==
PROVIDERS: Visit Provider Surgery
DX: N63.22 Unspecified lump in the left breast, upper inner quadrant (principal); N63.15 Unspecified lump in the right breast, overlapping quadrants; N63.11 Unspecified lump in the right breast, upper outer quadrant; R92.8 Other abnormal and inconclusive findings on diagnostic imaging of breast
CPT/HCPCS: 76642; 77062; 77066; G0279

== ENCOUNTER 2025-02-02 13:46 | Outpatient (CLI) | payer OTHER, SELFPAY ==
--- NOTE | ~2025-02-02 | US_ITS ---
EXAMINATION: US breast BI limited HISTORY: 60-year-old female who had benign pathology at ultrasound-guided core needle biopsy of bilateral breast masses completed on 12/21/2023 presents for follow-up evaluation. COMPARISON: 07/14/2024 through 10/07/2023 FINDINGS: Targeted ultrasound at the areas of the concern was completed. Right breast: In the Right breast at 11:00, 5 cm from the nipple, corresponding to previously biopsied lesion, there is an hypoechoic circumscribed mass containing biopsy clip with maximal examination of 0.7 cm. This lesion is unchanged in the interval. At 12:00, 4 cm FN, there is a circumscribed hypoechoic mass containing biopsy clip which has not changed in the interval. This lesion measure 1.01 x 0.82 x 0.46 cm. Left breast: In the left breast at 11:00, 4 cm FN there is a bilobed hypoechoic mass with maximum dimension of 0.5 cm containing a biopsy clip. This lesion has not changed in the interval. IMPRESSION: 1. Previously biopsied benign masses in both breasts are unchanged. BI-RADS 2, BENIGN Recommend continued screening mammography. Reviewed, dictated and finalized at location B. [employer]
--- OUTSIDE RECORDS SUMMARY | 2025-02-02 17:06 | XMS_ITS | Data Portability ---
Author Organization [facility] Address [address] [place] [place] [address] [place] [address] Assessment Encounter Date Assessment Date Assessment LastModified [...] Lab fecal occult blood, stool 020 07/26/19 [facility], [address], [address], [place], [address], 0 17:47:32 Referral None recorded . Procedures [...] e: Cervi isabel/E ndoce rvica l LMP: 4 020 Date Taken : 07/25 Speci men Type: ThinP rep Vial Date Repor kaur: 2019 Clini isabel Data: Cytot ech: Terri Dickerson , [place]( CP) Date Repor kaur: 2019 Revie wed By: Frances Allen , CT (ASCP ) Speci men Adequ acy: Satis facto ry for evalu ation No endoc ervic al/tr ansfo rmati on zone compo nent prese nt Gener al Categ oriza tion: NEGAT WILLI FOR INTRA EPITH ELIAL MIKAEL N OR MARIE REINA This speci men has been fiorella [...] and labor atory findi ngs. See https ://[employer]/s ites/ defau lt/fi les/2 018-0 3/AW- 84081 _002_ 01.pd f for furth er infor pernell n. Test perfo rmed by [facility], [address], [facility] [place] [address] , Pedro Montesinos ra, DO, Labor atory [...] and labor atory findi ngs. See https ://[employer]/s ites/ angela lt/fi les/2 018-0 3/AW- 74741 _002_ 01.pd f for fur er infor pernell barber. Test perfo rmed by [facility] [employer] [facility], d/b/a [facility], [address], [place] [address] , Pedro Montesinos ra, DO, Labor atory Direc tor. End of t Techn ical servi artie provi ded by [facility], d/b/a [facility], [address] [place] [address] Nhan Baugh MD, Labor at[facility]Cra[facility] [employer] Dire tor. Case revie wed and diagn osis rende red at [facility], d/b/a [facility], [address] [place] [address] Nhan Baugh MD, [facility] [employer] Dire tor. CONFI DENTI AL Not Available [facility] ([facility]) [address], [place], [address], 07/28/2019 13:01:19 07/26/19 20 07/27/2019 HPV DNA, high- risk HPV high risk NOT DETECT ED normal Not Available [facility]) [address], [place], [address], 07/28/2019 13:01:20 08/24/19 20 08/24/2019 MAMMO , scree [place], bilat eral No observ ation record ed. [address] , [place], [address], 09/29/2019 12:43:46 Result Notes None recorded. 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 Procedures Surgical History Date Name Laterality Status Provider Name and Address Organization Details Recorded Time Other completed Concetta Portermarie [facility] 07/26/2019 05:59:27 Imaging Results None recorded. Procedure Notes None recorded. Medical Equipment None Reported. Allergies Allergen ID Allergen Name Allergen Category Reaction Reaction Severity Criticality Documentation Date Start Date Code Code System Note Provider Name and Address Organization Details Recorded Time 537 aspirin medicatio n Not available Not available Not available 07/26/2019 1191 RxNorm Concetta lawson [facility] 0 05:56:28 Medications Name Sig Start Date Stop Date Status Note LastModified by Organization Details LastModified Time hydrocort isone 0.5 % topical cream apply by topical route 2 times every day a thin layer to the affected area(s) active Prescrib ed Elsewher e: Yes Loca tion: [facility] M odify By: yen Cadet ncounter DateTime : 07/23/19 10:00:00 AM Not Available Not Available Not Available fluconazo le 150 mg tablet Take by oral route. 07/25 completed Not Available Not Available Not Available monteluka st 4 mg chewable tablet active Prescrib ed Elsewher e: Yes Loca tion: [facility] odify By: yen Nina dina DateTime : 07/23/19 10:00:00 AM Not Available Not Available Not Available Imitrex 50 mg tablet take 1 tablet by oral route after onset of migraine ; may repeat after 2 hours if headache returns, not to exceed 200mg in 24hrs active Prescrib ed Elsewher e: Yes Loca tion: [facility] odify By: yen arroyount DateTime : 07/23/19 10:00:00 AM Not Available Not Available Not Available ranitidin e 150 mg capsule take 1 capsule by oral route 2 times every day active Prescrib ed Elsewher e: Yes Loca tion: [facility] odify By: yen arroyo DateTime : 07/23/19 10:00:00 AM Not Available Not Available Not Available esomepraz ole magnesium 20 mg capsule,d elayed release take 1 capsule by oral route every day at least 1 hour before a meal swallowi ng whole. Do not crush or chew granules . active Prescrib ed Elsewher e: Yes Loca tion: [facility] odify By: yen arroyo DateTime : 07/23/19 10:00:00 AM Not Available [...] Elsewher e: Yes Loca tion: [facility] odify By: yen arroyo DateTime : 07/23/19 10:00:00 AM Not Available Not Available Not Available Bystolic active Not Available Not Avai lable Not Available Negin Allergy 60 mg tablet take 1 tablet by oral route 2 times every day active Prescrib ed Elsewher e: Yes [facility] By: yen Cadet ncounter DateTime : 07/23/19 10:00:00 AM Not Available Not Available Not Available Dymista 137 mcg-50 mcg/spray nasal spray spray 1 spray by intranas al route 2 times every day in each nostril active Prescrib ed Elsewher e: Yes [facility]oca [facility] odify By: yen Cadet ncounter DateTime : 07/23/19 10:00:00 AM Not Available Not Available Not Available Dymista 07/25 completed Not Available Not Available Not Available Vitals Date Recorded Body height Body mass index (BMI) Body weight Systolic And Diastolic Provider Name and Address Organization Details Last Updated DateTime 07/26/2019 170.18 cm 34.6 kg/m2 506225.91 g 129/85 mm[Hg] [facility] 07/26/2019 09:17:11 Social History None recorded. Functional Status [...] Diagnosis SNOMED-CT Code Diagnosis ICD10 Code Diagnosis IMO Codes Diagnosis Note 3918 Patricia Starr MD [facility] [address] [address] 07/26/2019 09:03:24 07/26/2019 10:06:49 Gynecologic examination 69989412 Z01.419 Pap done due to h/o abnormal pap. Mammogram scheduled at [facility] 08/2019. Colonoscop y normal last year. Menopause symptoms improving without any treatment. She tried black cohosh but stopped it Health Concerns Section Related Observation LastModified by Organization Detai ls LastModified Time None Recorded Concern Status LastModified by Organization Details LastModified Time None Recorded Advance Directives Directive None Recorded Payers Insurance Date Sequence Insurance Name Policy Number Policy Spencer Covered Member ID Spencer Member ID Guarantor Name 07/25/2019 1 [facility] (O) [id number] Elmer Sagastume [id number] Notes Date Note Type Note Provider Name and Address Organization Details Recorded Time 0 text/html Annual GYNReported by PatientGenitourinary symptomsFor menstrual cycle, patient reportsirregular cycle intervals(periods q 1-3 months, never heavy. hot flashes and night sweats improving). For urinary symptoms, patient reportsno hematuriaandno incontinence. For vulva, patient reportsno genital lesion. For vagina, patient reportsnormal vaginal discharge.Breast symptomsFor breast, patient reportsno breast pain,no breast lump, andno nipple discharge.Endocrine symptomsFor menopausal symptoms, patient reportshot flashesandinsomnia due to night sweatsbut reportsnormal vaginal lubrication. For sexual complaints, patient reportsno sexual complaints,no pain during intercourse, andnormal libido.Psychological symptomsFor psychological symptoms, patient reportsno depression,no anxiety, andno pmdd. RITIKA Mukherjee - [facility] 07/26/2019 09:39:03 OBGyn Episode No OBEpisode recorded.
== END 2025-02-02 13:47 | disposition home or self-care (01) ==
LOC: ANHFOHIMG 13:48
PROVIDERS: Visit Provider Surgery
DX: N63.10 Unspecified lump in the right breast, unspecified quadrant (principal)
CPT/HCPCS: 76642